=== PATIENT | male | born 1980 | race Caucasian/White ===

== ENCOUNTER 2022-03-07 13:20 | Emergency (ER) | payer SELFPAY ==
[~2022-03-07] VITALS: Ht 190.5 cm; Wt 98.9 kg
--- NOTE | 2022-03-07 13:49 | ED EENT ---
History of Present Illness General Chief Complaint: Dental Problems/Pain Stated Complaint: ABCESSED TOOTH Nursing Triage Note: pt ambulatory to room. pt states he started to have lower right sided jaw/tooth swelling and pain yesterday. pt reports he went to the clinic today and they sent him here "for antibiotics or admission or something." pt reports he has not taken anything for the pain or swelling Source: patient Exam Limitations: no limitations History of Present Illness Date Seen by Provider: Mar 07, 2022 Time Seen by Provider: 13:38 Initial Comments Patient reports that he started having right sided jaw and tooth pain that started yesterday. Reports that he went to the clinic today and was told to come here for " antibiotics, admission, or something." Has not taken anything at home for his symptoms. Denies fever, nausea, vomiting, throat swelling or difficulty speaking or swallowing secretions. Reports that he is homeless. Has not seen a dentist in quite some time. Timing/Duration: yesterday Severity: moderate Prearrival Treatment: no prearrival treatment Modifying Factors: Worse With Activity, Worse With Rest Associated Symptoms: No cough, No drooling, No ear drainage; facial pain/swell ing (right jaw swelling); No fever, No malaise, No sinus infection, No sore throat; tooth pain; No voice change Allergies and Home Medications Allergies Coded Allergies: aspirin (Verified Allergy, Unknown, 03/07/22) unknown reaction Patient Home Medication List Home Medication List Reviewed: Yes Amoxicillin (Amoxicillin) 875 Mg Tablet, 875 MG PO BID Prescribed by: Orquidea Brasher on 03/07/22 1404 Review of Systems Review of Systems Constitutional: No chills, No dizziness, No fever, No malaise Eyes: Denies Blurred Vision, Denies Pain Ears: See HPI Nose: denies congestion, denies pain Mouth: pain, swelling; denies purulent discharge Throat: denies pain, denies swelling, denies neck stiffness, denies hoarse, denies muffled, denies painful swallowing, denies difficulty with fluids Respiratory: No cough, No short of breath Cardiovascular: No chest pain Gastrointestinal: No nausea, No vomiting All Other Systems Reviewed Negative Unless Noted: Yes Past [id number] Hx Patient Social History Tobacco Use?: Yes Tobacco type used: Cigarettes Smoking Status: Current Everyday Smoker Use of E-Cig and/or Vaping dev: No E-Cig or Vaping type used: Nicotine Substance use?: No Alcohol Use?: Yes Alcohol type: Beer Alcohol Frequency: Several times a month Past Medical History Surgeries: No Respiratory: No Family Medical History Reviewed and Corrections made Physical Exam Vital Signs Vital Signs - First Documented 03/07/22 13:28 Temp 37.2 Pulse 86 Resp 20 B/P (MAP) 148/83 (104) Pulse Ox 98 Height, Weight, BMI Height: '" Weight: lbs. oz. kg; 27.00 BMI Method: General Appearance: WD/WN, no apparent distress Ears: bilateral ear auricle normal, bilateral ear canal normal, bilateral ear TM normal Nose: normal inspection Mouth/Throat: normal mouth inspection, pharynx normal, dental tenderness (right lower molars); No excessive drooling; mandibular swelling (right lower jaw swelling); No maxillary swelling, No pharynx swelling, No trismus, No voice changes Neck: non-tender, full range of motion, supple; No limited range of motion; lymphadenopathy (R) (right sided anterior cervical lymphadenopathy); No lymphadenopathy (L) Cardiovascular: regular rate, rhythm, no murmur Respiratory: lungs clear, normal breath sounds, no respiratory distress, no a ccessory muscle use Gastrointestinal: normal bowel sounds, non tender, soft Neurologic/Psychiatric: alert, normal mood/affect, oriented x 3 Skin: normal color, warm/dry Progress/Results/Core Measures Results/Orders My Orders Orders - ORQUIDEA BRASHER APRN Acetaminophen Tablet/Caplet (Tylenol T (03/07/22 14:00) Acetaminophen Tablet/Caplet (Tylenol T (03/07/22 14:15) Ceftriaxone (Rocephin) (03/07/22 14:15) Lidocaine 1% Inj 20 Ml (Xylocaine 1% Inj (03/07/22 14:15) Vital Signs/I&O 03/07/22 13:28 Temp 37.2 Pulse 86 Resp 20 B/P (MAP) 148/83 (104) Pulse Ox 98 Blood Pressure Mean: 104 Progress Progress Note : Progress Note Discussed with patient treatment of dental abscess. No obvious drainage or abscess visualized. No airway concerns or possible obstruction appreciated. Is able to handle secretions without difficulty. Reports that he is homeless. Medication was sent to the pharmacy. Instructed on the importance of follow up with dentist as soon as possible. Explained to him that the amoxicillin is only a temporary fix. Getting the infection under control will decrease the pain. Was given dose of antibiotics while he was here in the department. Reviewed with him home discharge instructions and reasons to return to the emergency department. Departure Impression Primary Impression: Dental abscess Disposition: HOME, SELF-CARE Condition: Stable Departure-Patient Inst. Decision time for Depature: 14:00 Referrals: NO,LOCAL PHYSICIAN (PCP) Primary Care Physician Patient Instructions: LOCAL PHYSICIAN LIST, Tooth Abscess (DC) Add. Discharge Instructions: All discharge instructions reviewed with patient and/or family. Voiced understanding. 1. Home and rest. 2. Push fluids. 3. Alternate Tylenol/Ibuprofen as needed for pain or fever. 4. Follow up with Dentist as soon as possible. 5. Amoxicillin was sent to the pharmacy for you to cloth picker and start taking. This medication is only a temporary fix for the infection. It is important that you follow up with Dentist. 6. Follow up with PCP as needed. 7. Return here if worse or concerns. 8. Consider using dental wax to area of pain. Scripts Amoxicillin (Amoxicillin) 875 Mg Tablet 875 MG PO BID for 7 Days, #14 TAB Prov: ORQUIDEA BRASHER APRN 03/07/22 ORQUIDEA BRASHER APRN Mar 07, 2022 13:49
[2022-03-07] MEDS ORDERED: LIDOCAINE 1% INJ 20 ML VIAL INJ ONE ×2 (14:00→14:15)
[2022-03-07] MEDS ORDERED: ACETAMINOPHEN 325 MG TABLET PO ONE ×2 (14:00→14:15)
[2022-03-07] MEDS ORDERED: cefTRIAXone 1,000 MG VIAL IM ONE ×2 (14:00→14:15)
[2022-03-07] MEDS ORDERED: AMOX875T2 PO (14:04)
[2022-03-07 14:30] VITALS: BP 168/85
== END 2022-03-07 14:34 | disposition home or self-care (01) ==
LOC: ER 13:25
DX: K04.7 Periapical abscess without sinus (principal); F17.210 Nicotine dependence, cigarettes, uncomplicated
CPT/HCPCS: 99284